=== PATIENT | male | born 1935 | race Caucasian/White ===

== ENCOUNTER 2016-10-16 19:19 | Inpatient (IN) | payer MEDICARE ==
[~2016-10-16] VITALS: Ht 175.3 cm; Wt 73.9 kg
[~2016-10-16 19:19] MED LIST: ALBUTEROL2.5 MG/3 M INH; ASPIRIN81 MG PO; ATENOLOL25 MG NG; BAYER CHEWABLE81 MG PO; BENADRYL ITCH28.3 G1 TOPICAL; BENADRYL25 MG PO; BETAPACE 120 M120 MG PO; BUMEX 1 MG TAB1 MG PO; BUMEX2 MG PO; CARAFATE1 G PO; CHLORASEPTIC177 ML MM; CYCLOBENZAPRINE10 MG PO; DEXTROSE 50%/WA50 M2 IV; DULCOLAX10 MG/SUPP RC; ELIQUIS5 MG PO; EPOGEN4000 U/ML SQ; EZFE 200200 MG; FERROUS SULFAT325 MG PO; HEPARIN SO1000 UNIT/ IV; HEPARIN SOD5000 U/ML INJ; HYDROCHLOROTH12.5 M1 PO; LASIX40 MG PO; LEVAQUIN500 MG PO; MAG-OXIDE400 MG PO; MEDROL DOSE PACK4 MG PO; MULTAQ400 MG PO; NEPHRO-VITE RX1 TAB; NIFEREX-150 CAP1 CA3 PO; NYSTATIN ORAL SU5 ML PO; OMEPRAZOLE20 M1 PO; PATOWN PO; PLAVIX75 MG PO; POVIDONE-IODINE30 GM TP; PRILOSEC20 MG PO; PRINIVIL20 MG PO; PROTONIX40 MG PO; PROVENTIL/2.5 MG/3 M INH; RESTORIL7.5 MG; RESTORIL7.5 MG PO; ROBAXIN-750750 MG PO; ROBAXIN500 MG PO; SALINE FLUSH10 ML IV; SENNA PLUS TA1 UDTAB PO; SENOKOT-S TABLE1 TAB PO; SODIUM CL 0.91000 ML IVPB; SOTALOL PO; TENORMIN25 MG NG; TESSALON PERLE100 MG PO; ULTRAM50 MG PO; VITAMIN B-6200 M1 PO; ZOCOR10 MG PO; ZYLOPRIM300 MG PO
[2016-10-16 20:24] LABS: BASOPHILS 0.2 % (0.0-2.0); EOSINOPHILS 0 % (0-7); HEMATOCRIT 23.1 % (42.0-54.0); IMMATURE GRANULOCYTES 0.2 % (0-5); LYMPHOCYTES 9.5 % (15-50); MCH 23.9 pg (26.0-34.0); MCHC 29.4 g/dL (31.0-37.0); MCV 81.1 fL (80.0-100.0); MEAN PLATELET VOLUME 9.2 fL (7.4-10.4); MONOCYTES 8.5 % (2-11); NEUTROPHILS 81.6 % (40-80); PLATELET COUNT 204 10x3/uL (130-400); RBC 2.85 10x6/uL (4.20-6.10); RDW 16.4 % (11.5-14.5); WBC 5.4 10x3/uL (4.8-10.8)
[2016-10-16 20:25] LABS: HEMOGLOBIN 6.8 g/dL (13.5-17.5)
[2016-10-16 20:32] LABS: ALBUMIN 2.2 g/dL (3.4-5.0); ANION GAP 12.9 mmol/L (8-16); BILIRUBIN - TOTAL 0.58 mg/dL (0.2-1.3); CALCIUM 8.1 mg/dL (8.5-10.1); CARBON DIOXIDE 24.9 mmol/L (21.0-32.0); CREATININE - SERUM 1.4 mg/dL (0.6-1.3); POTASSIUM - SERUM 3.8 mmol/L (3.5-5.1); PROTEIN - SERUM 5.9 g/dL (6.4-8.2); URIC ACID 4.6 mg/dL (2.6-7.2)
[2016-10-16 21:47] LABS: APPEARANCE CLEAR (CLEAR); BILIRUBIN NEGATIVE (NEGATIVE); COLOR YELLOW (YELLOW); GLUCOSE NEGATIVE (NEGATIVE); KETONE NEGATIVE (NEGATIVE); LEUKOCYTE ESTERASE NEGATIVE (NEGATIVE); NITRITE NEGATIVE (NEGATIVE); PROTEIN NEGATIVE (NEGATIVE); SPECIFIC GRAVITY 1.015 (1.005-1.020); UROBILINOGEN NORMAL (NORMAL)
--- NOTE | 2016-10-16 22:45 | NUR ---
PT. ARRIVED VIA STRETCHER WITH ER NURSE AND PT'S PRIVATE CG. PT. TRANSFERRED TO HOSPITAL BED AND POSITIONED TO COMFORT WITH CARE NOT TO TOUCH HIS LEFT GREAT TOE CAUSE HE SAYS HIS GOUT IS ACTING UP. PT. 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 IV SITE AT RIGHT UPPER ARM AND IS LOCKED AND HAS ORANGE ALCOHOL CAP PRESENT. ASSESSMENT COMPLETED. CALL LIGHT WITHIN REACH. CG TO STAY THE NIGHT WITH PT. AND ACTS A SITTER.
[2016-10-16 22:50] VITALS: BP 153/37; BMI 23.6
[2016-10-17] VITALS (12 sets, daily range): BP systolic 74–159; BP diastolic 20–40; Ht 175.3 cm; Wt 73.9 kg
--- NOTE | 2016-10-17 02:59 | NUR ---
BLOOD TRANSFUSION CONSENT FORM SIGNED BY PT., THE BEST HE COULD, THEN I HAD HIS CG CO-SIGN A WITNESS THEN MYSELF. BLOOD INITIATED VIA PUMP WITHOUT ANY PROBLEMS. VITAL SIGNS BEING TAKEN VIA AUTO-PUMP TO RLE. CALL LIGHT REMAINS WITHIN REACH.
--- NOTE | 2016-10-17 06:56 | NUR ---
RECEIVED REPORT FROM BED MAKER NURSE, FLORENTIN MARIE. PT IN BED, SLEEPING AT THIS TIME, CAREGIVER AT BEDSIDE, CALL LIGHT IN REACH, NAD NOTED, WILL CONTINUE TO MONITOR.
--- NOTE | 2016-10-17 09:31 | NUR ---
ADMINISTER 40MG OF LASIX SCHEDULE. PT UP TO CHAIR, CAREGIVER AT BEDSIDE. CALL LIGHT IN REACH, PT DENIES ANY NEEDS AT THIS TIME. NAD NOTED, WILL CONTINUE TO MONTIOR.
--- NOTE | 2016-10-17 15:51 | NUR ---
FIRST UNIT OF PRBC'S STARTED INFUSING VITAL SIGNS STABLE. PT HAVING US VENOUS DROPLER DONE AT THIS TIME. FAMILY AT BEDSIDE, NAD NOTED, WILL CONTINUE TO MONITOR.
--- NOTE | 2016-10-17 19:20 | NUR ---
PRBCS FINISHED INFUSING, LINE FLUSHING WITH NS.
--- NOTE | 2016-10-17 19:56 | NUR ---
ASSESSMENT COMPLETE, IV TO RIGHT AC WITH NS INFUSING, SITE CLEAN AND DRY. PT DENIES PAIN OR NEEDS, BED LOW, CL IN REACH, SITTER AT BED SIDE.
[2016-10-17 21:40] LABS: HEMATOCRIT 28.7 % (42.0-54.0); HEMOGLOBIN 9.1 g/dL (13.5-17.5)
--- NOTE | 2016-10-17 21:46 | NUR ---
ORDER CLARIFICATION: SPOKE WITH CRISTIANO MARQUES APN INSPECTOR CASING FOR DR TEE, INFORMED HER THAT PT HAD RECIEVED 2 UNITS OF BLOOD ALREADY, ON AT 0300 ON 10/17/16 AND THE SECOND UNIT OF PRBCS GIVEN BY DAY SHIFT NURSE PROMISE AT 1500 ON 10/17/16, INFORMED CRISTIANO OF NEW H&H AND ASKED IF HE STILL NEEDED THE 2 MORE UNITS THAT WERE ORDERED TODAY, ORDERS GIVEN TO CANCEL THE UNITS ORDERED TODAY AND RECHECK LAB IN AM.
--- NOTE | 2016-10-18 00:44 | NUR ---
REPOSITIONED IN BED FOR COMFORT. CAREGIVER AT BED SIDE, BED LOW, CL IN REACH.
[2016-10-18 01:28] VITALS: BP 136/31
--- NOTE | 2016-10-18 02:32 | NUR ---
PT LAYING IN BED EYES CLOSED NO DISTRESS OBSERVED CALL LIGHT IN REACH SRX2 BED LOW AND LOCKED WILL MONITOR
--- NOTE | 2016-10-18 03:26 | NUR ---
RESTING WITH EYES CLOSED, RESPERATIONS EVEN, NO S/S DISTRESS NOTED.
[2016-10-18 05:21] LABS: BASOPHILS 0.2 % (0.0-2.0); EOSINOPHILS 0 % (0-7); HEMATOCRIT 27.3 % (42.0-54.0); HEMOGLOBIN 8.6 g/dL (13.5-17.5); IMMATURE GRANULOCYTES 0.3 % (0-5); LYMPHOCYTES 11.5 % (15-50); MCH 25.4 pg (26.0-34.0); MCHC 31.5 g/dL (31.0-37.0); MCV 80.8 fL (80.0-100.0); MEAN PLATELET VOLUME 10.2 fL (7.4-10.4); MONOCYTES 10.3 % (2-11); NEUTROPHILS 77.7 % (40-80); PLATELET COUNT 187 10x3/uL (130-400); RBC 3.38 10x6/uL (4.20-6.10); RDW 15.9 % (11.5-14.5); WBC 5.7 10x3/uL (4.8-10.8)
[2016-10-18 05:45] VITALS: BP 127/63; BP 164/41
[2016-10-18 05:48] LABS: ANION GAP 11.6 mmol/L (8-16); CALCIUM 8.3 mg/dL (8.5-10.1); CARBON DIOXIDE 27.8 mmol/L (21.0-32.0); CREATININE - SERUM 1.2 mg/dL (0.6-1.3); POTASSIUM - SERUM 3.4 mmol/L (3.5-5.1)
--- NOTE | 2016-10-18 07:00 | NUR ---
RECEIVED REPORT. ASSUMED CARE OF PATIENT. CALL LIGHT WITHIN REACH. SITTER AT BEDSIDE. RESP EVEN AND UNLABORED. NO DISTRESS.
[2016-10-18 07:52] VITALS: BP 157/64
--- NOTE | 2016-10-18 09:30 | NUR ---
AM CARES, BATH COMPLETE AT THIS TIME. CALL LIGHT WITHIN REACH. NO DISTRESS. TURNED AND REPOSITIONED. HEELS OFF BED AT THIS TIME.
--- NOTE | 2016-10-18 11:30 | NUR ---
MEDICATED FOR PAIN VIA HIEN VAZQUEZ RN. NO DISTRESS. SITTER REMAINS AT BEDSIDE. CALL LIGHT WITHIN REACH.
[2016-10-18 12:08] VITALS: BP 100/40
--- NOTE | 2016-10-18 15:00 | NUR ---
RESTING WITH EYES CLOSED. RESP EVEN AND UNLABORED. NO DISTRESS. SITTER AT BEDSIDE.
[2016-10-18 15:51] VITALS: BP 154/80
--- NOTE | 2016-10-18 18:30 | NUR ---
SITTER REMAINS AT BEDSIDE. CALL LIGHT WITHIN REACH. NO DISTRESS.
[2016-10-18 21:06] VITALS: BP 123/51
[2016-10-19 00:43] VITALS: BP 158/54
--- NOTE | 2016-10-19 01:55 | NUR ---
PT RESTING SOUNDLY WITHOUT C/O OR DISTRESS NOTED. CALL LIGHT WITHIN REACH. WILL CONT TO MONITOR.
[2016-10-19 04:58] LABS: BASOPHILS 0.2 % (0.0-2.0); EOSINOPHILS 0 % (0-7); HEMATOCRIT 28.1 % (42.0-54.0); HEMOGLOBIN 8.8 g/dL (13.5-17.5); IMMATURE GRANULOCYTES 0.4 % (0-5); LYMPHOCYTES 10.4 % (15-50); MCH 25.4 pg (26.0-34.0); MCHC 31.3 g/dL (31.0-37.0); MCV 81.2 fL (80.0-100.0); MEAN PLATELET VOLUME 10.1 fL (7.4-10.4); PLATELET COUNT 187 10x3/uL (130-400); RBC 3.46 10x6/uL (4.20-6.10); RDW 16.1 % (11.5-14.5); WBC 5.7 10x3/uL (4.8-10.8)
[2016-10-19 05:10] LABS: ANION GAP 11.9 mmol/L (8-16); CALCIUM 8.5 mg/dL (8.5-10.1); CARBON DIOXIDE 28.5 mmol/L (21.0-32.0); CREATININE - SERUM 1.3 mg/dL (0.6-1.3); POTASSIUM - SERUM 3.4 mmol/L (3.5-5.1)
[2016-10-19 05:26] VITALS: BP 157/58
[2016-10-19 08:00] VITALS: BP 178/61
--- NOTE | 2016-10-19 11:51 | NUR ---
PT IS ALERT. NO CO PAIN AT THIS TIME ASSESSMENT DONE PER FLOWSHEET. NO OTHER NEEDS. WILL CONTINUE TO MONITOR.
[2016-10-19 12:00] VITALS: BP 152/42
[2016-10-19 15:55] VITALS: BP 160/47
[2016-10-19 20:02] VITALS: BP 146/78
[2016-10-20] VITALS (14 sets, daily range): BP systolic 98–140; BP diastolic 37–60
[2016-10-20 06:03] LABS: BASOPHILS 0.4 % (0.0-2.0); EOSINOPHILS 0 % (0-7); HEMATOCRIT 29.9 % (42.0-54.0); HEMOGLOBIN 9.3 g/dL (13.5-17.5); IMMATURE GRANULOCYTES 0.2 % (0-5); LYMPHOCYTES 12.4 % (15-50); MCH 25.2 pg (26.0-34.0); MCHC 31.1 g/dL (31.0-37.0); MEAN PLATELET VOLUME 9.9 fL (7.4-10.4); MONOCYTES 10.3 % (2-11); NEUTROPHILS 76.7 % (40-80); PLATELET COUNT 194 10x3/uL (130-400); RBC 3.69 10x6/uL (4.20-6.10); RDW 16.3 % (11.5-14.5); WBC 4.8 10x3/uL (4.8-10.8)
[2016-10-20 06:35] LABS: ANION GAP 11.3 mmol/L (8-16); CALCIUM 8.2 mg/dL (8.5-10.1); CARBON DIOXIDE 28.8 mmol/L (21.0-32.0); CREATININE - SERUM 1.3 mg/dL (0.6-1.3); MAGNESIUM - SERUM 2.2 mg/dL (1.8-2.4); PHOSPHOROUS 4.4 mg/dL (2.5-4.9); POTASSIUM - SERUM 3.1 mmol/L (3.5-5.1)
--- NOTE | 2016-10-20 07:58 | NUR ---
AM ROUNDING DONE. PATIENT IS SLEEPING ON LEFT SIDE WITH HOB UP AT 30 DEGRESS. ON HEART MONITOR SHOWING SR W 1 DEGREE AVB, HR 66. RIGHT AC SEEN WITH NS INFUSING AT 20 CC/HR. POWELL CATH PATENT WITH CLEAR YELLOW URINE. RESERVE LEFT ARM. ON EP, WILL REPLACE POTASSIUM. WILL CONTINUE TO MONITOR.
--- NOTE | 2016-10-20 10:11 | NUR ---
PASCUAL WITH WOUND CARE HERE TO LOOK AT PATIENT'S BOTTOM AND HEELS WITH ME. DEEP TISSUE INJURY SEEN TO LEFT INSIDE BUTTOCK NEAR RECTUM, BILATERAL SOFT, BOGGY HEELS BILATERAL. WILL PLACE HEELS UP ON PILLOW.
--- NOTE | 2016-10-20 10:15 | NUR ---
WOUND CARE CONSULT: NOTED ABRASIONS TO LEFT KNEE. NO S/S INFECTION. BILATERAL HEELS ARE RED/BOGGY/VERY SLOW TO DELFINA. COCCYX HAS A PURPLE BRUISE AND DOES NOT DELFINA. (DEEP TISSUE INJURY).SURROUNDING SKIN IS RED BUT BLANCHES. RECOMMEND KEEPING HEELS BRIDGED. TURNING/REPOSITIONING PT Q2H AND KEEPING PT FROM SITTING DIRECTLY ON HIS COCCYX AREA. ALSO AIR OVERLAY MATTRESS. WOUND CARE WILL CONTINUE TO MONITOR.
[2016-10-20 12:06] LABS: APTT 37.5 SECONDS (22.8-39.4); INR 1.16 (0.85-1.17); PROTIME 14.7 SECONDS (11.6-15.0)
--- NOTE | 2016-10-20 12:26 | NUR ---
Patient Name: ALLYSON FIGUEROA Admission Status: ER Accout number: [id number] Admission Date: 10-16-2016 : 1935 Admission Diagnosis:PNEUMONIA, UNSPECIFIED ORGANISM Attending: RANDAL Current LOS: 4 Anticipated DC Date: Planned Disposition: Primary Insurance: [facility] Discharge Planning Comments: CM met with patient and caregiver at bedside who states patient was a resident at [facility] prior to this admission. Patient states his daughter/POA "Tiffany" ([phone]) will arrive tomorrow 10/21/16 to assist with arrangements to transport patient back to [place] with her upon discharge. CM will follow up with patient's daughter tomorrow to determine discharge plans. CM will follow and assist with discharge needs. Invasive Manager: Krystle Stewart RN/CM * Is the patient Alert and Oriented? Yes 0 * PCP Dr. Alonso (new PCP) 0 * Pharmacy [facility] 2 0 * Preadmission Environment [facility] * Facility [facility] 0 * ADLs Partial Dependent 0 * Partial ADLs (Assistance needed) Ambulation Bathing Dressing Medication Management Transfers 0 * Equipment Walker 0 * List name and contact numbers for known caregivers / representatives who currently or will assist patient after discharge: Tiffany (dtr) [phone] 0 * Community resources currently utilized None 0 * Additional services required to return to the preadmission environment? Yes 0 * Can the patient safely return to the preadmission environment? Yes 0 * Has this patient been hospitalized within the prior 30 days at any hospital? No 0 Grand Total: 0
[2016-10-20 12:39] LABS: APTT 36.4 SECONDS (22.8-39.4); INR 1.22 (0.85-1.17); PROTIME 15.3 SECONDS (11.6-15.0)
--- NOTE | 2016-10-20 13:02 | NUR ---
TO RADIOLOGY VIA BED.
--- NOTE | 2016-10-20 13:40 | NUR ---
Nutrition Follow Up: Chart reviewed. Diet: AHA NCS; Glucerna TID PO intake: 61% (9 meal avg) I<O +BM 10/20/16 Wt gain of 4# Labs noted - Na and K+ low, Glucose elevated Meds: Lasix Pt with fair po intake at this time. Rec continue current diet, supplement regimen. RD following.
--- NOTE | 2016-10-20 14:13 | NUR ---
1355-RETURNS FROM RADIOLOGY FROM RIGHT THORACENTHESIS. CLEAN, DRY, 4 X 4 WITH OPSITE SEEN. WILL CONTINUE TO MONITOR.
[2016-10-20 14:31] LABS: PROTEIN - BODY FLUID 1.5 G/DL
[2016-10-20 14:57] LABS: LYMPH - BF 25 %; MACROPHAGES BF 23 %; MESOTHELIALS BF 6 %; NEUT - BF 46 %
--- NOTE | 2016-10-20 15:25 | NUR ---
FAMILY MEMBERS WANTED IV RE-STIED IT WAS IN THE AC. RE-SITED WITH 22G X 1 STICK TO RIGHT FOREARM. OLD SALINE LOCK REMOVED WITH CATH TIP INTACT.
--- NOTE | 2016-10-20 18:22 | NUR ---
VINH, CAREGIVER AT BEDSIDE. SHE ASKS IF PATIENT IS ON COLAE, I TOLD HER NO AND THAT HE IS GETTING IRON TABS. PATIENT TELLS ME THAT HE IS CONCERNED THAT HE MIGHT GET CONSTIPATED AGAIN (HAD FLEETS ENEMA LAST NIGHT). I TOLD VINH THAT I COULD CALL THE DOCTOR FOR A COLACE ORDER OR WHEN CAN ASK IN THE MORNING FOR IT. WILL ASK IN AM. WILL CONTINUE TO MONITOR.
[2016-10-21] VITALS (14 sets, daily range): BP systolic 109–143; BP diastolic 42–90
[2016-10-21 06:24] LABS: BASOPHILS 0.2 % (0.0-2.0); EOSINOPHILS 0 % (0-7); HEMATOCRIT 30.2 % (42.0-54.0); HEMOGLOBIN 9.1 g/dL (13.5-17.5); IMMATURE GRANULOCYTES 0.4 % (0-5); LYMPHOCYTES 10.8 % (15-50); MCH 25.1 pg (26.0-34.0); MCHC 30.1 g/dL (31.0-37.0); MONOCYTES 9.7 % (2-11); NEUTROPHILS 78.9 % (40-80); PLATELET COUNT 203 10x3/uL (130-400); RBC 3.62 10x6/uL (4.20-6.10); RDW 16.5 % (11.5-14.5); WBC 4.5 10x3/uL (4.8-10.8)
[2016-10-21 06:26] LABS: MCV 83.4 fL (80.0-100.0)
[2016-10-21 06:47] LABS: ANION GAP 11.6 mmol/L (8-16); CALCIUM 8.2 mg/dL (8.5-10.1); CARBON DIOXIDE 28.1 mmol/L (21.0-32.0); CREATININE - SERUM 1.2 mg/dL (0.6-1.3); POTASSIUM - SERUM 3.7 mmol/L (3.5-5.1); PROTEIN - SERUM 5.4 g/dL (6.4-8.2)
--- NOTE | 2016-10-21 07:50 | NUR ---
DR SHEIKH TO CALL AND STATES THAT HE WILL NEED TO "TAP THE LEFT SIDE" FOR PATIENT TODAY. PATIENT IS MADE NPO AT THIS TIME. RIGHT FA WITH WITH NS INFUSING AT 20 CC/HR. WILL SALINE LOCK ORDERS. ON ROOM AIR AT PRESENT TIME. POWELL CATH PATENT, ON 1ST STEP OVERLAY MATTRESS. WILL CONTINUE TO MONITOR.
--- NOTE | 2016-10-21 08:42 | NUR ---
0820-PATIENT IS NOT IN HIS ROOM NOR THE BED. PERMIT WAS NOT SIGNED FOR PROCEDURE THIS AM.
[2016-10-21 09:42] LABS: PROTEIN - BODY FLUID 1.3 G/DL
--- NOTE | 2016-10-21 10:02 | NUR ---
0900-RETURNS FROM IR WITH 4 X 4 AND OPSITE TO LEFT POSTERIOR BACK. DRY AND INTACT. VINH, CAREGIVER AT BEDSIDE. WILL MONITOR.
--- NOTE | 2016-10-21 10:38 | NUR ---
VERBAL ORDER FROM DR TEE TO HOLD ATENOLOL
[2016-10-21 11:14] LABS: LYMPH - BF 12 %; MACROPHAGES BF 46 %; MESOTHELIALS BF 7 %; NEUT - BF 35 %
--- NOTE | 2016-10-21 15:35 | NUR ---
REPOSITIONED TO RIGHT SIDE WITH PILLOW BEHIND HIM FOR COMFORT. BED ALARM IS SET. WILL CONTINUE TO MONITOR.
[2016-10-21 17:11] LABS: AFB SPECIMEN PROCESSING Not Indicated (())
--- NOTE | 2016-10-21 17:54 | NUR ---
DR RANDAL NICHOLE SAID TO START PATIENT ON COLACE AND I WAS WAITING ON HIS ORDERS TO BE PLACED.
--- NOTE | 2016-10-21 19:39 | NUR ---
PT BEDSIDE REPORT COMPLETED NO DISTRESS OBSERVED EYES CLOSED AND PT APPERS TO BE SLEEPING CALL LIGHT IN REACH SRX2 BED LOW AND LOCKED WILL MONITOR
--- NOTE | 2016-10-21 21:27 | NUR ---
PT ASSESSMENT COMPLETED PT LAYING IN BED NO DISTRESS OBSERVED RESPERASTIONS EVEN AND UNLABORED QHS MEDS ADMIN AND PT TOLERATED WELL PT DENIES NEEDS OR WANTS AT THIS TIME CALL LIGHT REACH SRX2 BED LOW AND LOCKED WILL MONITOR
[2016-10-22 01:38] VITALS: BP 105/23
--- NOTE | 2016-10-22 02:33 | NUR ---
PT LAYING IN BED SOME CONFUSION OBSERVED AND PT IS REDIRECTABLE TO SITUATION. NO DISTRESS OBSERVED AND CALL LIGHT IN REACH SRX2 BED LOW AND LOCKED WILL MONITOR
--- NOTE | 2016-10-22 03:30 | NUR ---
UNION LABORER ALMAS ADMIN BED BATH AND CHANGED LINENS PT TOLERATED WELL NO DISTRESS OBSERVED CALL LIGHT IN REACH SRX2 BED LOW AND LOCKED WILL MONITOR
[2016-10-22 05:55] VITALS: BP 125/38
[2016-10-22 06:32] LABS: BASOPHILS 0.2 % (0.0-2.0); EOSINOPHILS 0 % (0-7); HEMATOCRIT 28.5 % (42.0-54.0); HEMOGLOBIN 8.7 g/dL (13.5-17.5); IMMATURE GRANULOCYTES 0.2 % (0-5); LYMPHOCYTES 13.6 % (15-50); MCH 25.2 pg (26.0-34.0); MCHC 30.5 g/dL (31.0-37.0); MCV 82.6 fL (80.0-100.0); MEAN PLATELET VOLUME 9.4 fL (7.4-10.4); MONOCYTES 12.3 % (2-11); NEUTROPHILS 73.7 % (40-80); PLATELET COUNT 182 10x3/uL (130-400); RBC 3.45 10x6/uL (4.20-6.10); RDW 16.5 % (11.5-14.5); WBC 4.1 10x3/uL (4.8-10.8)
[2016-10-22 06:47] LABS: ANION GAP 9.3 mmol/L (8-16); CALCIUM 8.3 mg/dL (8.5-10.1); CARBON DIOXIDE 28.5 mmol/L (21.0-32.0); CREATININE - SERUM 1.3 mg/dL (0.6-1.3); POTASSIUM - SERUM 3.8 mmol/L (3.5-5.1)
--- NOTE | 2016-10-22 07:20 | NUR ---
RECEIVED PT REPORT WILL CONTINUE PLAN OF CARE. NO OTHER NEEDS AT THIS TIME. WILL CONTINUE TO MONITOR.
--- NOTE | 2016-10-22 07:32 | NUR ---
PT IS ALERT. ASSESSMENT DONE PER FLOWSHEET. NO CO PAIN AT THIS TIME. WILL CONTINUE TO MONITOR.
[2016-10-22 07:49] VITALS: BP 140/45
[2016-10-22 11:47] VITALS: BP 117/35
--- NOTE | 2016-10-22 13:00 | NUR ---
PT IS ALERT. NO SS OF DISTRESS AT THIS TIME. WILL CONTINUE TO MONITOR. NO OTHER NEEDS.
--- NOTE | 2016-10-22 13:26 | NUR ---
CM received request for information regarding air transport via helicopter to [place]. The daughter wishes to have her father transported to the skilled facility where she is the DON. CM provided phone numbers for [facility] and [facility] to the daughter. She will need to speak directly to the provider for arrangements. Advsied we would need accepting MD. She hopes her father will be stable enough for transport directly to the skilled facility. The daughter has spoken w/ DR Cruz. He is aware of the plan. Possible discharge in 48- 72 hrs. CM to follow to assist as is appropriate.
[2016-10-22 15:54] VITALS: BP 133/41
--- NOTE | 2016-10-22 20:00 | NUR ---
REPORT RECEIVED AND CARE ASSUMED. ASSESSMENT COMPLETED. PATIENT LYING IN BED WITH LOTS OF FAMILY AT BEDSIDE. NO DISTRESS NOTED. HE IS CONFUSED ABOUT WHERE HE IS. HS MEDICATIONS ADMINISTERED. DENIES ANY NEEDS OR WANTS AT THIS TIME. CALL LIGHT IN REACH SRX2. WILL CONTINUE TO MONITOR.
[2016-10-22 20:37] VITALS: BP 92/30
[2016-10-22 22:06] LABS: AFB SPECIMEN PROCESSING Concentration (())
[2016-10-23 00:17] VITALS: BP 137/33
[2016-10-23 04:29] VITALS: BP 132/39
--- NOTE | 2016-10-23 04:45 | NUR ---
PATIENT AWAKENED AND WAS GETTING CONFUSED. HE WAS ORIENTED TO NAME AND BEING IN THE HOSPITAL. HE PULLED OFF ALL TELEMETRY LEADS AND REFUSED TO WEAR THEM.
[2016-10-23 05:08] LABS: BASOPHILS 0.4 % (0.0-2.0); EOSINOPHILS 0 % (0-7); HEMATOCRIT 30.8 % (42.0-54.0); HEMOGLOBIN 9.4 g/dL (13.5-17.5); IMMATURE GRANULOCYTES 0.2 % (0-5); LYMPHOCYTES 12.7 % (15-50); MCH 25.3 pg (26.0-34.0); MCHC 30.5 g/dL (31.0-37.0); MCV 82.8 fL (80.0-100.0); MEAN PLATELET VOLUME 10.2 fL (7.4-10.4); MONOCYTES 10.2 % (2-11); NEUTROPHILS 76.5 % (40-80); PLATELET COUNT 187 10x3/uL (130-400); RBC 3.72 10x6/uL (4.20-6.10); RDW 16.3 % (11.5-14.5); WBC 4.5 10x3/uL (4.8-10.8)
[2016-10-23 05:23] LABS: ANION GAP 12.5 mmol/L (8-16); CALCIUM 8.4 mg/dL (8.5-10.1); CARBON DIOXIDE 26.6 mmol/L (21.0-32.0); CREATININE - SERUM 1.3 mg/dL (0.6-1.3); POTASSIUM - SERUM 4.1 mmol/L (3.5-5.1)
--- NOTE | 2016-10-23 05:57 | NUR ---
PATIENT REFUSED XRAY @0530. NURSE SAID TO TRY AGAIN LATER IN THE MORNING.
--- NOTE | 2016-10-23 07:26 | NUR ---
RECEIVED PT REPORT. WILL CONTINUE PLAN OF CARE. NO OTHER NEEDS AT THIS TIME. WILL CONTINUE PLAN OF CARE. NO OTHER NEEDS AT THIS TIME.
[2016-10-23 07:45] VITALS: BP 155/48
[2016-10-23 11:57] VITALS: BP 131/77
--- NOTE | 2016-10-23 12:13 | NUR ---
PT IS ALERT. ASSESSMENT DONE PER FLOWSHEET. NO CO PAIN AT THIS TIME. WILL CONTINUE TO MONITOR.
[2016-10-23 15:03] VITALS: BP 121/45
[2016-10-23 20:00] VITALS: BP 129/39
--- NOTE | 2016-10-23 20:10 | NUR ---
RESUMED CARE OF PT, LYING IN BED RESPIRATIONS EVEN AND UNLABORED ON 2LPM VIA NC. FAMILY AT BEDSIDE AND PLAN OF CARE DISCUSSED. 62 PACED ON TELEMETRY. RIGHT FOREARM SALINE LOCKED. HEELS BRIDGED. CALL LIGHT IN REACH. WILL CONTINUE TO MONITOR. SEE NURSE ASSESSMENT.
[2016-10-24] VITALS: BP 135/45
--- NOTE | 2016-10-24 02:53 | NUR ---
BED BATH AND LINENS CHANGED, REPOSITIONED FOR COMFORT. CALL LIGHT IN REACH. WILL CONTINUE TO MONITOR.
[2016-10-24 05:38] LABS: BASOPHILS 0.2 % (0.0-2.0); EOSINOPHILS 0 % (0-7); HEMATOCRIT 30.8 % (42.0-54.0); HEMOGLOBIN 9.5 g/dL (13.5-17.5); IMMATURE GRANULOCYTES 0.2 % (0-5); LYMPHOCYTES 11.2 % (15-50); MCH 25.2 pg (26.0-34.0); MCHC 30.8 g/dL (31.0-37.0); MCV 81.7 fL (80.0-100.0); MEAN PLATELET VOLUME 9.8 fL (7.4-10.4); MONOCYTES 10.7 % (2-11); NEUTROPHILS 77.7 % (40-80); PLATELET COUNT 172 10x3/uL (130-400); RBC 3.77 10x6/uL (4.20-6.10); RDW 16.2 % (11.5-14.5); WBC 4.8 10x3/uL (4.8-10.8)
--- NOTE | 2016-10-24 05:58 | NUR ---
NO CHANGES FROM PREVIOUS ASSESSMENT, CALL LIGHT IN REACH. WILL CONTINUE WITH PLAN OF CARE.
[2016-10-24 06:27] LABS: ANION GAP 11.5 mmol/L (8-16); CALCIUM 7.9 mg/dL (8.5-10.1); CARBON DIOXIDE 27.4 mmol/L (21.0-32.0); CREATININE - SERUM 1.3 mg/dL (0.6-1.3); POTASSIUM - SERUM 3.9 mmol/L (3.5-5.1)
[2016-10-24 08:00] VITALS: BP 141/59
[2016-10-24 11:12] LABS: FUNGUS STAIN Final report (())
[2016-10-24 11:12] LABS: FUNGUS STAIN Final report (())
--- NOTE | 2016-10-24 11:35 | NUR ---
SPOKE WITH PT DTR AND CAREGIVER IN ROOM REGARDING CONCERNS FOR PHYSICAL THERAPY. CAREGIVER IS UPSET THAT PT HAS NOT WORKED WITH PATIENT SINCE 10/18/16. I ADVISED THAT PT SIGNED OFF STATING PATIENT ABLE TO AMBULATE WITHOUT ASSIST DEVICE AND COULD AMBULATE WITH CAREGIVER WALKING BESIDE PATIENT. SHE ADVISED NO ONE ADVISED THEM OF THIS AND THAT SHE DID NOT FEEL COMFORTABLE ASSISTING PATIENT. I ADVISED I WOULD GET ORDER FOR A PHYSICAL THERAPY RECONSULT TO ASSESS GAIT AND STRENGTH. VERBAL ACKNOWLEDGEMENT RETURNED
[2016-10-24 12:00] VITALS: BP 115/64
[2016-10-24 16:00] VITALS: BP 116/44
[2016-10-24 20:00] VITALS: BP 113/36
--- NOTE | 2016-10-24 22:25 | NUR ---
PT LYING IN BED, EYES CLOSED, RESPIRATIONS EVEN AND UNLABORED. PT IS EASILY ROUSABLE TO VERBAL STIMULI, DENIES ANY NEEDS. CONTINUE TO MONITOR CLOSELY. WARM BLANKET PLACED ON PT R/T BEING COLD, MEDICATIONS TAKEN WITHOUT ANY DIFFICULTY, CONTINUE TO MONITOR CLOSELY. BED LOW, CALL LIGHT IN REACH, SIDE RAILS X 2, HOB 15 DEGREES.
[2016-10-25] VITALS: BP 134/42
[2016-10-25 04:00] VITALS: BP 125/45
--- NOTE | 2016-10-25 05:50 | NUR ---
PT LYING IN BED, EYES CLOSED, RESPIRATIONS EVEN AND UNLABORED. PT IS EASILY ROUSABLE TO VERBAL STIMULI, ALERT, AND ORIENTED. PT STATES HE IS LOOKING FORWARD TO BEING D/C TODAY. PT DENIES ANY NEEDS. CONTINUE TO MONITOR.
[2016-10-25 08:54] VITALS: BP 117/36
--- NOTE | 2016-10-25 09:34 | NUR ---
Patient Name: ALLYSON FIGUEROA Encounter No: [id number] : 1935 Primary Insurance: [employer] Anticipated DC Date: 10-26-2016 Planned Disposition: Acute Care Hospital External Planned Provider: [place], [place]. DCP follow-up note: CM MET WITH PT AND DAUGHTER, WEN CRAIG, , IN ROOM TO DISCUSS DISCHARGE PLANNING AND NEEDS. WEN REPORTS PT IS TRANSFERRING TO [facility] IN [place], [place] TO BE CLOSER TO DAUGHTER, WEN. PT IN AGREEMENT WITH DISCHARGE PLAN. WEN HAS SPOKEN TO [facility] FOR FINANCIAL ARRANGEMENTS AND THEY ARE WAITING ON CM TO CALL TO MAKE FINAL ARRANGEMENTS. WEN STATES THAT THIS HAS ALL BEEN DISCUSSED WITH DR. TEE. WEN PROVIDED HOSPITAL AND DOCTOR INFORMATION FOR THE DOCTOR TO COMPLETE THE DOCTOR CALL AND ACCEPTANCE. [facility], [address] [place] [id number]; SANDRA - HOSPITALIST: PHONE [phone] / CELL [phone] [facility] tina - [phone] CM WILL NEED DOCTOR'S ORDER FOR TRANSFER, OBTAIN ADMINISTRATIVE APPROVAL, DOCTOR ACCEPTANCE AT RECEIVING FACILITY AND ALSO OBTAIN ROOM NUMBER AT ACCEPTING HOSPITAL IN ORDER TO ARRANGE [facility]. CM PAGED AND SPOKE TO MAGDA MARQUES, NOTIFIED OF ABOVE. CM TO CONTINUE TO FOLLOW AND ASSIST NEEDED. Dharmesh Couch, CASE MANAGEMENT
--- NOTE | 2016-10-25 10:00 | NUR ---
Nutrition follow-up: Diet: Low sodium PO intake ~70% of meals Labs reviewed +BM Wt: 165# - stable PO intake has increased; wt stable RDN following.
[2016-10-25 12:14] VITALS: BP 125/45
--- NOTE | 2016-10-25 14:18 | NUR ---
CM RECEIVED ORDER TO ASSIST WITH TRANSFER TO ACUTE FACILITY [facility] IN [place]. CM PLACED CALL TO CHERYL Diggs RNFOOT SPECIALIST TO INFORM OF TRANSFER ORDER AND OBTAIN ADMIN. APPROVAL FOR TRANSFER. CHERYL RETURNED CM'S CALL AND INFORMED THAT MILTON HERNANDEZ IS ADMIN. [employer] TODAY AND GAVE ADMINISTRATIVE APPROVAL FOR ACUTE TRANSFER. CM INFORMED BEDSIDE RN AND PATIENT COMMUNICATIONS TOWER CLIMBER. Jared BURNS CM FOLLOWING AND ASSISTING WITH TRANSFER DETAILS. SEE CM NOTES FOR TRANSFER DETAILS. Kymberly GRANT, RN
[2016-10-25] MEDS ORDERED: IPRAT-ALBUT 0.5-3 ML UPD (15:45)
[2016-10-25] MEDS ORDERED: LASIX INJ40 MG/4 ML IV (15:46)
--- NOTE | 2016-10-25 16:02 | NUR ---
Patient Name: ALLYSON FIGUEROA Encounter No: [id number] : 1935 Primary Insurance: [employer] Anticipated DC Date: 10-27-2016 Planned Disposition: Acute Care Hospital External Planned Provider: : [place], [place]. DCP follow-up note: CM RECEIVED ORDER TO ASSIST WITH TRANSFER OF PT TO [facility]. EMMA ADVISED BY MAGDA MARQUES THAT DR. ARIZMENDI HAS SPOKEN TO DR. BOWERS OF [facility] WHO ACCEPTED PT FOR TRANSFER. EMMA CALLED AND SPOKE TO SANDRA NAVARRETE, HOSPITALISTS COORDINATOR FOR [facility], (CELL) [phone] (HOSPITAL), WHO REPORTED THAT PT WILL BE BROUGHT TO THE PATIENT ACCESS OF [facility] AND WILL RECEIVE ROOM ASSIGNMENT TOMORROW AFTER ARRIVAL AT [facility]. CM CALLED [facility], , WHO REPORTED THAT PT'S DAUGHTER HAS MADE ALL FINANCIAL ARRANGEMENTS WITH THEM AND THEY HAVE ARRANGED [facility] TO EDUCATION COORDINATOR PT BETWEEN 1100AM AND 1130AM TOMORROW FOR TRANSPORT TO THE AIRPORT FOR FIXED WING [facility] TRANSPORT TO [place]. [facility]MA FAXED FACE SHEET TO [facility] AT [phone]. MARCIA PRO [facility] CALLED [facility] AND INFORMED CM THAT HE HAS RECEIVED NURSE UPDATE TODAY AND WILL BE PART OF THE FLIGHT CREW TO EDUCATION COORDINATOR PT. CM NOTIFIED PT'S CAREGIVER AT NURSES STATION AND PT IN ROOM. CM CALLED PT'S DAUGHTER, WEN, . [facility] TO EDUCATION COORDINATOR PT TOMORROW BETWEEN 11:00 AND 11:30AM. CM TO CONTINUE TO FOLLOW AND ASSIST NEEDED. Dharmesh Couch, CASE MANAGEMENT
[2016-10-25 16:08] VITALS: BP 111/85
[2016-10-25 21:18] VITALS: BP 125/38
--- NOTE | 2016-10-26 00:20 | NUR ---
NURSE ROUNDS 21:00 - PT AWAKE, ALERT, ORIENTED, MILDY AGITATED R/T BEING ON THE 1ST STEP OVERLAY MATTRESS, AND NOT BEING D/C TODAY. I ASSURED PT THAT CASE MANAGEMENT IS WORKING VERY HARD ON ALL THE ARRANGEMENTS AND THAT HE WILL BE ABLE TO LEAVE TOMORROW. PT REQUESTED SOMETHING FOR SLEEP, AND DID VOICE MILD GENERALIZED DISCOMFORT SO I DID GIVE HIM HIS PRN TRAMADOL FLEXERIL. PTS LINEN WAS STRAIGHTENED OUT, PT WAS REPOSITIONED HIGHER UP IN BED, WATER PLACED ON TRAY TABLE ON THE LEFT SIDE PER PTS REQUEST HE LIES/SLEEPS ON HIS LEFT SIDE. PT DENIES ANY MORE NEEDS. CONTINUE TO MONITOR CLOSELY.
[2016-10-26 01:12] VITALS: BP 122/60
--- NOTE | 2016-10-26 04:57 | NUR ---
PT LYING IN BED ON LEFT SIDE, HAS BEEN RESTLESS ALL SHIFT, TRYING TO SLEEP OFF AND ON, BUT WITH MINIMAL RESULTS. DENIES ANY NEEDS. CONTINUE TO MONITOR CLOSELY. BED LOW, CALL LIGHT IN REACH, SIDE RAILS X 2, HOB 30 DEGREES AT THIS TIME. PT WILL KEEP HEELS BRIDGED ON PILLOWS AND HAS C/O THE AIR MATTRESS A FEW TIMES WELL.
[2016-10-26 05:21] VITALS: BP 122/37
[2016-10-26] MEDS ORDERED: FUROSEMIDE40 MG PO (07:51)
--- NOTE | 2016-10-26 08:12 | NUR ---
PT HAS BEEN RESTLESS AND MILDLY CONFUSED THIS AM. HE IS ANXIOUS TO BE TRANSPORTED AND QUESTIONS WHY IT IS TAKING SO LONG. I EXPLAINED THAT I HAVE SPOKE WITH LAMBERT SAMUELS, TELEMETRY MONITOR WHO STATED THE AIR[facility] SHOULD ARRIVE APPROX 10:00 - 11:00 AM TODAY. PT AGREED THAT HE UNDERSTOOD AND IS NOW EATING BREAKFAST SITTING UP IN CHAIR. CONTINUE TO MONITOR CLOSELY.
--- NOTE | 2016-10-26 08:30 | NUR ---
RECEIVED PT REPORT. NO OTHER NEEDS WILL CONTINUE TO MONITOR. WILL CONTINUE PLAN OF CARE.
--- NOTE | 2016-10-26 08:40 | NUR ---
Patient Name: ALLYSON FIGUEROA Encounter No: [id number] : 1935 Primary Insurance: [facility] Anticipated DC Date: 10-27-2016 Planned Disposition: Acute Care Hospital External Planned Provider: [facility] DCP follow-up note: SPOKE TO SANDRA NAVARRETE, HOSPITALISTS COORDINATOR FOR [facility], (CELL), WHO ADVISED THAT NURSE REPORT IS TO BE CALLED TO HER. PT TO BE PICKED UP AT 1015AM THIS MORNING BY [facility] ARRANGED BY [facility] FOR TRANSPORT TO [facility] VIA AIRCRAFT. Dharmesh Couch, CASE MANAGEMENT
[2016-10-26 08:53] VITALS: BP 154/47
--- NOTE | 2016-10-26 09:39 | NUR ---
REPORT CALLED TO SANDRA NAVARRETE AT [facility] IN [place], [place]. ORNAMENTAL METAL ERECTOR CHERYL CALLED TO SIGN OFF ON TRANSPORT. WILL CONTINUE TO [place]IT[place].
--- NOTE | 2016-10-26 09:56 | NUR ---
PT IS ALERT. ASSESSMENT DONE PER FLOWSHEET. DC TEACHING COMPLETE AND POWELL BAG INERCHANGED FOR LEG BAG. IV DC'D WAITING FOR AMBULANCE AT THIS TIME.
--- NOTE | 2016-10-26 11:12 | NUR ---
EMT ON SCENE TO TAKE PT TO HELICOPTER. NO OTHER NEEDS AT THIS TIME.
[2016-11-22 08:20] LABS: FUNGUS MYCOLOGY CULTURE Final report (())
[2016-11-22 08:20] LABS: FUNGUS MYCOLOGY CULTURE Final report (())
[2016-12-07 11:19] LABS: ACID FAST CULTURE Negative (()); ACID FAST SMEAR Negative (())
[2016-12-15 18:49] LABS: ACID FAST CULTURE Negative (()); ACID FAST SMEAR Negative (())
--- NOTE | 2016-12-30 12:12 | DS ---
PATIENT:ALLYSON FIGUEROA :[birth year] MEDICAL RECORD: [id number] DISCHARGE SUMMARY ADMISSION DATE: 10/16/16 DISCHARGE DATE: 10/26/16 DATE OF ADMISSION: 10/16/2016 DATE OF DISCHARGE: 10/26/2016 HOSPITAL COURSE: This is an 81-year-old patient from [facility], who was sent with some abnormal labs. The patient was admitted with anemia and pneumonia in addition to some severe anemia and electrolyte abnormalities and some acute renal failure. The patient was admitted into the inpatient setting, started on aggressive IV antibiotic therapy as well as fluid resuscitation and electrolyte correction. The patient did require thoracentesis during the hospitalization. With the patient's anemia, it was felt that it was due to slow gastrointestinal bleed. The patient was not a candidate for any invasive procedures due to the age and multiple comorbid conditions. The patient did develop some atrial fib during hospitalization; it was felt to be due to the acute blood loss anemia. The patient was not a candidate for Eliquis therapy for this reason. The patient's clinical course was long. The patient's daughter was ____. A transfer [facility] to another facility was arranged in January. See discharge meds. TRANSINT:[id number] Voice Confirmation ID: [id number] DOCUMENT ID: [id number] Dictated By: NIRAV AYALA I have interviewed/examined the above patient and agree with these documented findings. RAYO ARIZMENDI MD at 1212 at 0811 CC: [id number] DICTATION DATE: 12/29/16 0909 RIVET HEATER GAS: 12/30/16 0048 DIS IN 10/26/16 [facility] [address] [place] [address]
== END 2016-10-26 11:16 | disposition short-term general hospital (02) | DRG 291 ==
LOC: D.ER 19:19 → D.M2 20:58
PROVIDERS: Family Medicine; General Practice; Internal Medicine Pulmonary Disease; ADMIT Family Medicine
PROC: 0W993ZZ Drainage of Right Pleural Cavity, Percutaneous Approach (ICD-10-PCS; principal; 2016-10-20 13:02)
PROC: 0W9B3ZZ Drainage of Left Pleural Cavity, Percutaneous Approach (ICD-10-PCS; 2016-10-21)
DX: I13.0 Hypertensive heart and chronic kidney disease with heart failure and stage 1 through stage 4 chronic kidney disease, or unspecified chronic kidney disease (principal); J18.9 Pneumonia, unspecified organism; I50.21 Acute systolic (congestive) heart failure; J90 Pleural effusion, not elsewhere classified; J98.11 Atelectasis; E87.1 Hypo-osmolality and hyponatremia; N18.9 Chronic kidney disease, unspecified; D63.1 Anemia in chronic kidney disease; I25.10 Atherosclerotic heart disease of native coronary artery without angina pectoris; K21.9 Gastro-esophageal reflux disease without esophagitis; L89.621 Pressure ulcer of left heel, stage 1; I48.91 Unspecified atrial fibrillation; I08.3 Combined rheumatic disorders of mitral, aortic and tricuspid valves; K57.90 Diverticulosis of intestine, part unspecified, without perforation or abscess without bleeding